=== PATIENT | male | born 1995 | race Caucasian/White ===

== ENCOUNTER 2020-01-12 16:23 | Emergency (ER) | payer BC, OTHER ==
[2020-01-12] MEDS ORDERED: Sodium Chloride 0.9% 10 ML Syringe FLUSH PRN (16:30)
[2020-01-12] MEDS ORDERED: Sodium Chloride 0.9% 1,000 ML IV ONE ×2 (16:32→17:44)
[2020-01-12] MEDS ORDERED: Ondansetron 4 MG/2 ML SDV IVPUSH ONE (16:32)
[2020-01-12] MEDS ORDERED: Morphine 4 MG/ML Syringe IVPUSH ONE (16:32)
[2020-01-12 17:52] LABS: CHLORIDE,CL 107 mmol/L (98-107); SODIUM,NA 148 mmol/L (136-145)
[2020-01-12 17:53] LABS: ANION GAP 14.3 mmol/L (10-20)
[2020-01-12 17:55] VITALS: PULSE 74
[2020-01-12] MEDS ORDERED: Take Home: Ondansetron 4 MG Tab.DIS, 2 Tab Pack PO ONE (18:53)
[2020-01-12 19:25] VITALS: BP 128/74
--- NOTE | 2020-01-13 00:24 | EDM.PDOC ---
ED HPI GENERAL MEDICAL PROBLEM - General Chief Complaint: Gastrointestinal Problem Stated Complaint: vomiting Time Seen by Provider: 01/12/20 16:23 Source of Information: Reports: Patient History Limitations: Reports: No Limitations - History of Present Illness INITIAL COMMENTS - FREE TEXT/NARRATIVE: Pt. presents to ER with complaints of nausea, vomiting, mild diarrhea, and diffuse abdominal cramping since last night. He states that he has vomited an unknown number of times. Denies any fever or chills. States that the discomfort in his abdomen is diffuse and does not localize. He does admit to consuming some alcohol last night as well. He states that his sibling was recently ill with similar symptoms. He states that he is unable to hold down any fluids at all. Onset: Today Onset Date: 01/13/20 Location: Reports: Abdomen, Generalized Associated Symptoms: Reports: Nausea/Vomiting. Denies: Fever/Chills, Rash, Shortness of Breath, Weakness Abdomen Pain Score (Numeric/FACES): 8 - Related Data Allergies Allergy/AdvReac Type Severity Reaction Status Date / Time No Known Allergies Allergy Verified 01/12/20 16:34 Home Meds: Home Meds . [No Known Home Meds] 03/31/16 [History] Past Medical History - Past Health History Medical/Surgical History: Denies Medical/Surgical History HEENT History: Reports: Other (See Below) Other HEENT History: Minor nasal fracture on 02/20/14 Cardiovascular History: Reports: None Respiratory History: Reports: None Gastrointestinal History: Reports: None Genitourinary History: Reports: None Musculoskeletal History: Reports: Fracture (Severe AC joint separation of the right shoulder on 07/23/14 with surgery as below, left proximal fifth metatarsal fracture in 2005). Denies: Amputation, Arthritis, Back Pain, Chronic, Gout, Neck Pain, Chronic, Osteoarthritis, RA, SLE Neurological History: Reports: Concussion, Head Trauma Psychiatric History: Reports: None Endocrine/Metabolic History: Reports: None Hematologic History: Reports: None Immunologic History: Reports: None Oncologic (Cancer) History: Reports: None Dermatologic History: Reports: None - Infectious Disease History Infectious Disease History: Reports: Chicken Pox - Past Surgical History Head Surgeries/Procedures: Reports: None Cardiovascular Surgical History: Reports: None Respiratory Surgical History: Reports: None GI Surgical History: Reports: None Endocrine Surgical History: Reports: None Musculoskeletal Surgical History: Reports: Shoulder Surgery Oncologic Surgical History: Reports: None Dermatological Surgical History: Reports: None - Past Imaging History Past Imaging History: Reports: None Social & Family History - Family History Family Medical History: Noncontributory - Tobacco Use Smoking Status *Q: Never Smoker Second Hand Smoke Exposure: No - Caffeine Use Caffeine Use: Reports: None - Recreational Drug Use Recreational Drug Use: No - Living Situation & Occupation Living situation: Reports: Alone Occupation: Employed ED ROS GENERAL - Review of Systems Review Of Systems: See Below Constitutional: Reports: No Symptoms HEENT: Reports: No Symptoms Respiratory: Reports: No Symptoms Cardiovascular: Reports: No Symptoms Endocrine: Reports: No Symptoms GI/Abdominal: Reports: Abdominal Pain, Anorexia, Diarrhea, Decreased Appetite, Nausea, Vomiting. Denies: Black Stool, Bloody Stool, Constipation, Difficulty Swallowing, Distension, Hematemesis, Hematochezia, Melena, Mucous in Stool : Denies: No Symptoms Musculoskeletal: Reports: No Symptoms Skin: Reports: No Symptoms Neurological: Reports: No Symptoms Psychiatric: Reports: No Symptoms Hematologic/Lymphatic: Reports: No Symptoms Immunologic: Reports: No Symptoms ED EXAM, GENERAL - Physical Exam Exam: See Below Exam Limited By: No Limitations General Appearance: Alert, WD/WN, No Apparent Distress Throat/Mouth: Normal Inspection, Normal Lips, Normal Teeth, Normal Gums, Normal Voice, No Airway Compromise, Other (oral mucosa dry) Head: Atraumatic, Normocephalic Neck: Normal Inspection, Supple, Non-Tender Respiratory/Chest: No Respiratory Distress Cardiovascular: Normal Peripheral Pulses, Regular Rate, Rhythm, No Edema, No Gallop, No JVD, No Murmur, No Rub Peripheral Pulses: 4+: Radial (L) GI/Abdominal: Normal Bowel Sounds, Soft, No Organomegaly, No Distention, No Abnormal Bruit, Pelvis Stable, Tender (diffusely tender throughout, greatly improved after IV fluids) (Male) Exam: Deferred Rectal (Males) Exam: Deferred Back Exam: Normal Inspection, Full Range of Motion Extremities: Normal Inspection, Normal Range of Motion, Non-Tender, No Pedal Edema, Normal Capillary Refill Neurological: Alert, Oriented, CN II-XII Intact, Normal Cognition, Normal Gait, Normal Reflexes, No Motor/Sensory Deficits Psychiatric: Normal Affect, Normal Mood Skin Exam: Warm, Dry, Intact, Normal Color, No Rash Lymphatic: No Adenopathy Course - Vital Signs Last Recorded V/S: Last Vital Signs Temp 36.7 C 01/12/20 19:05 Pulse 74 01/12/20 19:05 Resp 18 01/12/20 19:05 BP 128/74 01/12/20 19:05 Pulse Ox 100 01/12/20 19:05 - Orders/Labs/Meds Orders: Active Orders 24 hr Category Date Time Status UA W MICR POC [POC] Urgent Lab 01/12/20 18:40 Results Peripheral IV Insertion Adult [OM.PC] Routine Oth 01/12/20 16:31 Ordered Labs: Laboratory Tests 01/12/20 01/12/20 01/12/20 Range/Units 17:24 17:24 18:40 WBC 15.4 H (4.0-10.0) x10^3/uL RBC 4.58 (4.5-6.0) x10^6/uL Hgb 14.2 (14.0-18.0) g/dL Hct 39.7 L (40.0-52.0) % MCV 86.7 (78.0-93.0) fL MCH 31.0 (26.0-32.0) pg MCHC 35.8 (32.0-36.0) g/dL RDW Coeff of Monster 12.4 (10.0-15.0) % Plt Count 241 (130-400) x10^3/uL Neut % (Auto) 87.3 H (50.0-80.0) % Lymph % (Auto) 5.2 L (25.0-50.0) % [place] % (Auto) 7.4 (2.0-11.0) % Eos % (Auto) 0.0 (0.0-4.0) % Baso % (Auto) 0.1 L (0.2-1.2) % Sodium 148 H (136-145) mmol/L Potassium 4.3 (3.5-5.1) mmol/L Chloride 107 (98-107) mmol/L Carbon Dioxide 31 (21-32) mmol/L Anion Gap 14.3 (10-20) mmol/L BUN 11 (7-18) mg/dL Creatinine 1.1 (0.70-1.30) mg/dL Est Cr Clr Drug Dosing 109.34 mL/min Estimated GFR (MDRD) > 60 Glucose 126 H (74-106) mg/dL Calcium 8.6 (8.5-10.1) mg/dL Corrected Calcium 8.44 L (8.5-10.1) mg/dL Magnesium 1.4 L (1.8-2.4) mg/dL Total Bilirubin 0.9 (0.2-1.0) mg/dL AST 34 (15-37) U/L ALT 47 (16-63) U/L Alkaline Phosphatase 54 (46-116) U/L C-Reactive Protein 0.2 (<=0.9) mg/dL Total Protein 7.4 (6.4-8.2) g/dL Albumin 4.2 (3.4-5.0) g/dL Globulin 3.2 Albumin/Globulin Ratio 1.31 Amylase 38 (25-115) U/L Lipase 69 L (73-393) U/L Urine Color Krista H (YELLOW) POC Urine Appearance Clear (CLEAR) POC Urine pH 8.0 (5.0-8.0) Ur Specific [place] 1.005 (1.005-1.030) POC Urine Protein Trace H (NEGATIVE) POC Ur Glucose (UA) Negative (NEGATIVE) POC Urine Ketones Negative (NEGATIVE) POC Ur Occult Blood Negative (NEGATIVE) POC Urine Nitrite Negative (NEGATIVE) POC Urine Bilirubin Negative (NEGATIVE) POC Urine Urobilinogen 0.2 (0.2) POC U Leukocyte Esteras Negative (NEGATIVE) Meds: Medications Discontinued Medications Generic Name Dose Route Start Last Admin Trade Name Freq PRN Reason Stop Dose Admin Sodium Chloride 1,000 mls @ 1,000 mls/hr 01/12/20 16:32 01/12/20 16:38 Normal Saline IV 01/12/20 17:31 1,000 mls/hr .BOLUS ONE Administration Sodium Chloride 1,000 mls @ 1,000 mls/hr 01/12/20 17:44 01/12/20 17:45 Normal Saline IV 01/12/20 18:43 1,000 mls/hr .BOLUS ONE Administration Morphine Sulfate 4 mg 01/12/20 16:32 01/12/20 16:41 Morphine IVPUSH 01/12/20 16:33 4 mg ONETIME ONE Administration Ondansetron HCl 4 mg 01/12/20 16:32 01/12/20 16:38 Zofran IVPUSH 01/12/20 16:33 4 mg ONETIME ONE Administration Ondansetron HCl 1 packet 01/12/20 18:53 01/12/20 19:05 Take Home: Ondansetron Odt 4 Mg, 2 Tab Pack PO 01/12/20 18:54 1 packet ONETIME ONE Administration Sodium Chloride 10 ml 01/12/20 16:30 Saline Flush FLUSH ASDIRECTED PRN Keep Vein Open Departure - Departure Time of Disposition: 19:11 Disposition: Home, Self-Care 01 Clinical Impression: Gastroenteritis - Discharge Information Instructions: Viral Gastroenteritis, Adult, [id number] Referrals: PCP,None [Primary Care Provider] - Forms: ED Department Discharge Additional Instructions: Home to rest. Just clear liquids today. Start to advance diet to include bland foods starting tomorrow afternoon. Zofran ODT 1 tab every 6-8 hours as needed for nausea/vomiting. Return to ER if you have worsening abdominal discomfort, fever, chills, unable to hold down fluids. Sepsis Event Note - Evaluation Sepsis Screening Result: No Definite Risk - Focused Exam Vital Signs: Vital Signs Temp Pulse Resp BP Pulse Ox 01/12/20 19:05 36.7 C 74 18 128/74 100 01/12/20 17:40 36.9 C 74 16 136/66 99 01/12/20 16:27 35.8 C L 71 18 118/77 100 Date Exam was Performed: 01/13/20 Time Exam was Performed: 00:19 - Problem List Review Problem List Initiated/Reviewed/Updated: Yes - My Orders Last 24 Hours: My Active Orders 01/12/20 16:31 Peripheral IV Insertion Adult [OM.PC] Routine 01/12/20 18:40 UA W MICR POC [POC] Urgent - Assessment/Plan Last 24 Hours: My Active Orders 01/12/20 16:31 Peripheral IV Insertion Adult [OM.PC] Routine 01/12/20 18:40 UA W MICR POC [POC] Urgent Plan: Pt. reported feeling much better after the IV fluids and zofran. He states that the discomfort in his abdomen has improved significantly. He does have an elevated white count but has been vomiting copiously. At this time, we will forgo any imaging of his abdomen as he is feeling better, with the promise that he will return of the discomfort gets worse. He states that he lives in the [place] area and has transportation. Recheck in clinic in 7-10 days. Clear liquids tonight and tomorrow AM.
== END 2020-01-12 19:11 | disposition home or self-care (01) ==
LOC: VM.ED 16:23
DX: K52.9 Noninfective gastroenteritis and colitis, unspecified (principal)
CPT/HCPCS: 36415; 80053; 81000; 81001; 82150; 83690; 83735; 85025; 86140; 87804; 87804-59; 96361; 96374; 96375; 99284-25; A9270-GY; J2270; J2405; J7030